=== PATIENT | female | born 1975 | race Caucasian/White ===

== ENCOUNTER 2020-05-31 12:08 | Observation (INO) ==
[2020-05-31] MEDS ORDERED: Isovue-370 500 ML BOTTLE IVP ONE (12:22)
[2020-05-31 13:22] LABS: Hematocrit 38.4 % (35.3-44.9); Hemoglobin 12.2 g/dL (11.5-15.4); Mean Corpuscular HGB Conc 31.8 g/dL (31.6-35.5); Mean Corpuscular Hemoglobin 27.1 pg (28.0-33.3); Mean Corpuscular Volume 85.3 fL (83.0-100.0); Mean Platelet Volume 10.2 fL (9.4-12.4); Platelet Count 436 K/mcL (140-400); Red Cell Distribution Width 13.6 % (11.5-14.5)
[2020-05-31 13:34] LABS: INR 1.1; Prothrombin Time 12.4 Seconds (9.4-12.1)
[2020-05-31 13:37] LABS: Activated Partial Thrombo Time 31.2 Seconds (26.0-36.0)
[2020-05-31 13:42] LABS: BUN/Creatinine Ratio 18 (6-26); Blood Urea Nitrogen 12 mg/dL (6-20); Calcium 9.7 mg/dL (8.6-10.3); Carbon Dioxide 29 mEq/L (23-29); Chloride 103 mEq/L (98-107); Glucose 113 mg/dL (70-105); Osmolality,Calculated 289 (280-300); Potassium 3.7 mEq/L (3.5-5.1); Sodium 139 mEq/L (136-145); Troponin I < 0.03 ng/mL (< 0.04); eGFR For African Americans > 60 (> 60); eGFR For Non-African Americans > 60 (> 60)
[2020-05-31] MEDS ORDERED: Aspirin 325 MG TABLET PO ONE (13:45)
[2020-05-31] MEDS ORDERED: Naloxone 0.4 MG/ML INJ IVP PRN (14:21)
[2020-05-31] MEDS ORDERED: D5% in Water 1,000 ML IVC PRN (14:23)
[2020-05-31] MEDS ORDERED: Dextrose Gel 15 GM/37.5 ML TUBE PO PRN ×2 (14:23)
[2020-05-31] MEDS ORDERED: *HR* Dextrose 50 % in Water (Vial) 50 ML VIAL IVP PRN (14:23)
[2020-05-31] MEDS: Insulin LISPRO 300 UNITS/3 ML VIAL SUBQ SCH (19:47)
[2020-05-31] MEDS: Insulin DETEMIR 100 UNIT/ML X5UNITS SUBQ SCH (20:56)
[2020-05-31] MEDS ORDERED: Insulin LISPRO 300 UNITS/3 ML VIAL SUBQ SCH (21:00)
[2020-05-31] MEDS: Acetaminophen 325 MG TABLET PO PRN (22:08)
[2020-06-01 03:36] LABS: Basophils % 0.3 %; Eosinophils # 0.3 K/mcL (0.0-0.6); Eosinophils % 2.2 %; Hematocrit 33.8 % (35.3-44.9); Hemoglobin 10.9 g/dL (11.5-15.4); Immature Granulocytes % 0.3 % (0-4); Lymphocytes % 26.5 %; Mean Corpuscular HGB Conc 32.2 g/dL (31.6-35.5); Mean Corpuscular Hemoglobin 28.3 pg (28.0-33.3); Mean Corpuscular Volume 87.8 fL (83.0-100.0); Mean Platelet Volume 10.3 fL (9.4-12.4); Monocytes # 0.8 K/mcL (0.0-1.3); Monocytes % 7.2 %; Neutrophils # 7.3 K/mcL (1.6-8.9); Platelet Count 347 K/mcL (140-400); Red Blood Count 3.85 M/mcL (3.82-4.97); Red Cell Distribution Width 13.6 % (11.5-14.5); Segmented Neutrophils % 63.5 %; White Blood Count 11.5 K/mcL (4.3-11.1)
[2020-06-01 03:56] LABS: BUN/Creatinine Ratio 26 (6-26); Blood Urea Nitrogen 17 mg/dL (6-20); Calcium 8.8 mg/dL (8.6-10.3); Carbon Dioxide 25 mEq/L (23-29); Chloride 106 mEq/L (98-107); Glucose 81 mg/dL (70-105); Osmolality,Calculated 287 (280-300); Potassium 3.6 mEq/L (3.5-5.1); Sodium 138 mEq/L (136-145); eGFR For African Americans > 60 (> 60); eGFR For Non-African Americans > 60 (> 60)
[2020-06-01 04:43] LABS: Estimated Average Glucose 318 mg/dl; Hemoglobin A1C 12.7 %
[2020-06-01] MEDS: Insulin LISPRO 300 UNITS/3 ML VIAL SUBQ SCH ×3 (08:49→17:25)
[2020-06-01] MEDS: Insulin DETEMIR 100 UNIT/ML X5UNITS SUBQ SCH (08:50)
[2020-06-01] MEDS ORDERED: Perflutren Lipid Microsphere 1.3 ML in 0.9 % Sodium Chloride 8.7 ML IVP PRN (12:52)
[2020-06-01] MEDS: Acetaminophen 325 MG TABLET PO PRN (13:20)
[2020-06-01 15:46] VITALS: BP 135/83
== END 2020-06-01 17:48 | disposition home or self-care (01) ==
LOC: EMEROOARM 12:08 → 3NENU 12:08
PROVIDERS: ADMIT Internal Medicine; ATTEND Internal Medicine